=== PATIENT | female | born 2000 | race Caucasian/White ===

== ENCOUNTER 2019-07-28 14:33 | Emergency (ER) | payer SELFPAY ==
--- NOTE | 2019-07-28 15:08 | ER ---
Nurse's Notes [facility] Name: Lore Hodges Age: 19 yrs Sex: Female : 2000 Arrival Date: 07/28/2019 Time: 14:35 Bed 12 Private MD: Diagnosis: Impetigo, unspecified Presentation: 07/28 14:38 Presenting complaint: Patient states: "I've been having a problem right here (patient aj1 gestures to face) today I woke up with swelling to my eye and now I'm getting worried" Patient reports that she has been getting these pustules on her face since the beginning of the month, it started on the chin and then spread to the rest of her face. Transition of care: patient was not received from another setting of care. Onset of symptoms was July 2019. Risk Assessment: Do you want to hurt yourself or someone else? Patient reports no desire to harm self or others. Initial Sepsis Screen: Does the patient meet any 2 criteria? No. Patient's initial sepsis screen is negative. Does the patient have a suspected source of infection? No. Patient's initial sepsis screen is negative. Care prior to arrival: None. 14:38 Method Of Arrival: Ambulatory aj1 14:38 Acuity: AGUSTIN 4 aj1 Triage Assessment: 14:40 General: Appears in no apparent distress. comfortable, Behavior is calm, cooperative, aj1 appropriate for age. Pain: Complains of pain in back and right knee Pain currently is 5 out of 10 on a pain scale. Neuro: Level of Consciousness is awake, alert, obeys commands. Cardiovascular: Patient's skin is warm and dry. Respiratory: Airway is patent Respiratory effort is even, unlabored, Respiratory pattern is regular, symmetrical. 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 - Social history:: Smoking status: Patient/guardian denies using tobacco. - Ebola Screening: : Patient denies travel to an Ebola-affected area in the 21 days before illness onset. Screenin:00 Abuse screen: Denies threats or abuse. Nutritional screening: No deficits noted. aa5 Tuberculosis screening: No symptoms or risk factors identified. Fall Risk None identified. Assessment: 15:00 General: Appears comfortable, Behavior is calm, cooperative. Pain: Denies pain. Neuro: aa5 Level of Consciousness is awake, alert, obeys commands, Oriented to person, place, time, situation. Cardiovascular: Heart tones S1 S2 present Rhythm is regular. Respiratory: Airway is patent Respiratory effort is even, unlabored, Respiratory pattern is regular, symmetrical. GI: No signs and/or symptoms were reported involving the gastrointestinal system. : No signs and/or symptoms were reported regarding the genitourinary system. EENT: No signs and/or symptoms were reported regarding the EENT system. Derm: Skin is pink, warm \\T\\ dry. Rash noted that is on red, round, and dry skin to face. Musculoskeletal: Range of motion: intact in all extremities. Vital Signs: 14:40 BP 127 / 81; Pulse 96; Resp 18; Temp 97.9; Pulse Ox 100% on R/A; Weight 63.5 kg (R); aj1 Height 5 ft. 7 in. (170.18 cm) (R); Pain 5/10; 14:40 Body Mass Index 21.93 (63.50 kg, 170.18 cm) aj1 ED Course: 14:35 Patient arrived in ED. as 14:39 Triage completed. aj1 14:40 Arm band placed on Patient placed in waiting room, Patient notified of wait time. aj1 14:51 Julissa Rhodes, KLAUS is Primary Nurse. aa5 14:57 Wilton Willett NP is PHCP. pm1 14:57 Bryson Salvador MD is Attending Physician. pm1 15:00 Patient has correct armband on for positive identification. aa5 15:30 No provider procedures requiring assistance completed. Patient did not have IV access aa5 during this emergency room visit. Administered Medications: No medications were administered Outcome: 15:07 Discharge ordered by . pm1 15:30 Discharged to home ambulatory, with significant other. aa5 15:30 Condition: stable 15:30 Discharge instructions given to patient, Instructed on discharge instructions, follow up and referral plans. medication usage, Demonstrated understanding of instructions, follow-up care, medications, Prescriptions given X 2. 15:31 Patient left the ED. aa5 Signatures: Ermelinda Sifuentes RN RN aj1 Jazmine Butler as Julissa Rhodes, KLAUS RN aa5 Wilton Willett, SUPERVISOR [employer] ELEMENTS SUPERVISOR [employer] ELEMENTS pm1
--- NOTE | 2019-07-28 15:08 | EDPHYS ---
Physician Documentation [facility] Name: Lore Hodges Age: 19 yrs Sex: Female : 2000 Arrival Date: 07/28/2019 Time: 14:35 Bed 12 Private MD: ED Physician Bryson Salvador HPI: 07/28 15:06 This 19 yrs old Female presents to ER via Ambulatory with complaints of Rash. pm1 15:06 The patient's rash thought to be caused by an unknown cause. The rash is located on the pm1 face and groin. The rash can be described as crusted. Onset: The symptoms/episode began/occurred 1 week(s) ago. Associated signs and symptoms: Pertinent negatives: fever, swelling of lips, swelling of throat, swelling of tongue. Severity of symptoms: in the emergency department the symptoms are worse. Treatment given at home: None. The patient has not experienced similar symptoms in the past. The patient has not recently seen a physician. 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 - Social history:: Smoking status: Patient/guardian denies using tobacco. - Ebola Screening: : Patient denies travel to an Ebola-affected area in the 21 days before illness onset. ROS: 15:06 Constitutional: Negative for fever, chills, and weight loss, Eyes: Negative for injury, pm1 pain, redness, and discharge, Cardiovascular: Negative for chest pain, palpitations, and edema, Respiratory: Negative for shortness of breath, cough, wheezing, and pleuritic chest pain, Abdomen/GI: Negative for abdominal pain, nausea, vomiting, diarrhea, and constipation, Back: Negative for injury and pain, MS/Extremity: Negative for injury and deformity. 15:06 Neuro: Negative for headache, weakness, numbness, tingling, and seizure. 15:06 Skin: Positive for rash, of the face and groin, Negative for abscesses. Exam: 15:06 Constitutional: This is a well developed, well nourished patient who is awake, alert, pm1 and in no acute distress. Head/Face: Normocephalic, atraumatic. Neck: Trachea midline, no thyromegaly or masses palpated, and no cervical lymphadenopathy. Supple, full range of motion without nuchal rigidity, or vertebral point tenderness. No Meningismus. Chest/axilla: Normal chest wall appearance and motion. Nontender with no deformity. No lesions are appreciated. Cardiovascular: Regular rate and rhythm with a normal S1 and S2. No gallops, murmurs, or rubs. Normal PMI, no JVD. No pulse deficits. Respiratory: Lungs have equal breath sounds bilaterally, clear to auscultation and percussion. No rales, rhonchi or wheezes noted. No increased work of breathing, no retractions or nasal flaring. Abdomen/GI: Soft, non-tender, with normal bowel sounds. No distension or tympany. No guarding or rebound. No evidence of tenderness throughout. Back: No spinal tenderness. No costovertebral tenderness. Full range of motion. 15:06 Skin: Appearance: normal except for affected area, consistent with impetigo, business broker: Diya LI. 15:06 Neuro: Orientation: is normal, Motor: is normal, moves all fours. Vital Signs: 14:40 BP 127 / 81; Pulse 96; Resp 18; Temp 97.9; Pulse Ox 100% on R/A; Weight 63.5 kg (R); aj1 Height 5 ft. 7 in. (170.18 cm) (R); Pain 5/10; 14:40 Body Mass Index 21.93 (63.50 kg, 170.18 cm) aj MDM: 14:58 Patient medically screened. pm1 15:06 Data reviewed: vital signs. Data interpreted: Pulse oximetry: on room air is 100 %. pm1 Interpretation: normal. Counseling: I had a detailed discussion with the patient and/or guardian regarding: the historical points, exam findings, and any diagnostic results supporting the discharge/admit diagnosis, the need for outpatient follow up, to return to the emergency department if symptoms worsen or persist or if there are any questions or concerns that arise at home. Administered Medications: No medications were administered Disposition: 07/28/19 15:07 Discharged to Home. Impression: Impetigo, unspecified. - Condition is Stable. - Discharge Instructions: Impetigo, Adult. - Prescriptions for Bactroban 2 % Topical Ointment - Apply to affected area 1 application by TOPICAL route every 12 hours; 30 gram. Bactrim DS 800- 160 mg Oral Tablet - take 1 tablet by ORAL route every 12 hours for 10 days; 20 tablet. - Medication Reconciliation Form, Thank You Letter, Antibiotic Education, Prescription Opioid Use form. - Follow up: Emergency Department; When: As needed; Reason: Worsening of condition. Follow up: Private Physician; When: 2 - 3 days; Reason: Recheck today's complaints, Continuance of care, Re-evaluation by your physician. - Problem is new. - Symptoms have improved. Addendum: 07/31/2019 06:44 Co-signature as Attending Physician, Bryson Salvador MD I agree with the assessment and c mccann plan of care. Signatures: Ermelinda Sifuentes, RN RN aj1 Bryson Salvador MD MD cha Calderon, Audri, RN RN aa5 Wilton Willett NP AIRBRUSH ARTIST pm1 Corrections: (The following items were deleted from the chart) 07/28 15:31 15:07 07/28/2019 15:07 Discharged to Home. Impression: Impetigo, unspecified. Condition aa5 is Stable. Forms are Medication Reconciliation Form, Thank You Letter, Antibiotic Education, Prescription Opioid Use. Follow up: Emergency Department; When: As needed; Reason: Worsening of condition. Follow up: Private Physician; When: 2 - 3 days; Reason: Recheck today's complaints, Continuance of care, Re-evaluation by your physician. Problem is new. Symptoms have improved. pm1
[2019-07-28 16:55] VITALS: BP 127/81; TEMP 97.9; O2SAT 100
== END 2019-07-28 15:31 | disposition home or self-care (01) ==
LOC: ER 14:33
DX: L01.00 Impetigo, unspecified (principal); Z88.0 Allergy status to penicillin
CPT/HCPCS: 99282

== ENCOUNTER 2019-08-21 17:12 | Emergency (ER) | payer SELFPAY ==
--- NOTE | 2019-08-21 18:09 | ER ---
Nurse's Notes [facility] Name: Lore Hodges Age: 19 yrs Sex: Female : 2000 Arrival Date: 08/21/2019 Time: 17:14 Bed 13 Private MD: Diagnosis: Impetigo, unspecified Presentation: 08/21 17:22 Presenting complaint: Patient states: facial rash that started 2 days ago that is worse sv than it was when she was seen here on 07/28/19. Was told it was impetigo and given prescriptions and it got better but started back again. Transition of care: patient was not received from another setting of care. Onset of symptoms was August 19, 2019. Risk Assessment: Do you want to hurt yourself or someone else? Patient reports no desire to harm self or others. Initial Sepsis Screen: Does the patient meet any 2 criteria? No. Patient's initial sepsis screen is negative. Does the patient have a suspected source of infection? No. Patient's initial sepsis screen is negative. Care prior to arrival: None. 17:22 Method Of Arrival: Ambulatory sv 17:22 Acuity: AGUSTIN 5 sv RN DISEASE MANAGEMENT: 17:20 LMP 08/10/2019 rb1 Historical: - Allergies: 17:23 PENICILLINS; sv - PMHx: 17:23 None; sv - PSHx: 17:23 None; sv - Immunization history:: Adult Immunizations up to date, Flu vaccine is not up to date. - Social history:: Smoking status: Patient/guardian denies using tobacco. - Ebola Screening: : No symptoms or risks identified at this time. Screenin:20 Abuse screen: Denies threats or abuse. Nutritional screening: No deficits noted. rb1 Tuberculosis screening: No symptoms or risk factors identified. Fall Risk None identified. Assessment: 17:20 General: Appears in no apparent distress. comfortable, Behavior is calm, cooperative, rb1 Denies fever. Pain: Denies pain. Neuro: Level of Consciousness is awake, alert, obeys commands, Oriented to person, place, time, situation. Cardiovascular: Capillary refill < 3 seconds is brisk in bilateral fingers. Respiratory: Airway is patent Respiratory effort is even, unlabored, Respiratory pattern is regular, symmetrical. GI: No signs and/or symptoms were reported involving the gastrointestinal system. : No signs and/or symptoms were reported regarding the genitourinary system. Derm: Rash noted that is itchy, on left side of face, back, thumbs, and pubic area. 18:20 Reassessment: Patient appears in no apparent distress at this time. No changes from rb1 previously documented assessment. Vital Signs: 17:23 BP 116 / 65; Pulse 72; Resp 16; Temp 98; Pulse Ox 100% ; Weight 65.77 kg; Height 5 ft. sv 7 in. (170.18 cm); Pain 0/10; 18:11 BP 116 / 84; Pulse 73; Resp 16; Temp 97.6; Pulse Ox 100% on R/A; mh5 17:23 Body Mass Index 22.71 (65.77 kg, 170.18 cm) sv ED Course: 17:14 Patient arrived in ED. mr 17:20 Patient has correct armband on for positive identification. Bed in low position. Call rb1 light in reach. Side rails up X 1. Pulse ox on. NIBP on. 17:23 Triage completed. sv 17:23 Arm band placed on. sv 17:30 Ary Washburn, RN is Primary Nurse. rb1 17:45 Laurel Llanes FNP-C [facility]. snw 17:45 Fab Gibson MD is Attending Physician. snw 18:35 No provider procedures requiring assistance completed. Patient did not have IV access rb1 during this emergency room visit. Administered Medications: 18:20 Drug: Clindamycin 300 mg Route: PO; rb1 18:35 Follow up: Response: Medication administered at discharge. rb1 18:20 Drug: Hibiclens 4 % 1 application Route: Topical; Site: affected area; rb1 Outcome: 18:08 Discharge ordered by . snw 18:35 Patient left the ED. rb1 18:35 Discharged to home ambulatory. rb1 18:35 Condition: stable 18:35 Discharge instructions given to patient, Instructed on discharge instructions, follow up and referral plans. medication usage, Demonstrated understanding of instructions, follow-up care, medications, Prescriptions given X 1. Signatures: Sabine Rankin RN RN Laurel Llanes FNP-C BEEF CATTLE FARM WORKER-[facility] Sandra Madrigal mr Ary Washburn RN RN [place] Gretta Butler [facility] Corrections: (The following items were deleted from the chart) 17:24 17:22 Presenting complaint: Patient states: facial rash that started 2 days ago that is sv worse than it was when she was seen here on 07/28/19. Was given prescriptions and it got better but started back again. sv
--- NOTE | 2019-08-21 18:10 | EDPHYS ---
Physician Documentation [facility] Name: Lore Hodges Age: 19 yrs Sex: Female : 2000 Arrival Date: 08/21/2019 Time: 17:14 Bed 13 Private MD: ED Physician Fab Gibson HPI: 08/21 19:07 This 19 yrs old Female presents to ER via Ambulatory with complaints of Skin snw Sore(s). 19:07 Onset: The symptoms/episode began/occurred suddenly. Associated signs and symptoms: snw Pertinent positives: itching. 19:10 The patient has experienced a previous episode. The patient has been recently seen by a snw physician: with similar presenting complaints, and apparently given a diagnosis of impetigo. 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 - Social history:: Smoking status: Patient/guardian denies using tobacco. - Ebola Screening: : No symptoms or risks identified at this time. ROS: 19:04 Constitutional: Negative for fever, chills, and weight loss, Eyes: Negative for injury, snw pain, redness, and discharge, ENT: Negative for injury, pain, and discharge, Neck: Negative for injury, pain, and swelling, Cardiovascular: Negative for chest pain, palpitations, and edema, Respiratory: Negative for shortness of breath, cough, wheezing, and pleuritic chest pain, Abdomen/GI: Negative for abdominal pain, nausea, vomiting, diarrhea, and constipation, Back: Negative for injury and pain, : Negative for injury, bleeding, discharge, and swelling, MS/Extremity: Negative for injury and deformity, Neuro: Negative for headache, weakness, numbness, tingling, and seizure, Psych: Negative for depression, anxiety, suicide ideation, homicidal ideation, and hallucinations. 19:04 Skin: Positive for dx with impetigo, rx Bactroban and Bactrim. Face was clearing and rx for bactrim completed. Face began breaking out again. Exam: 18:57 Constitutional: This is a well developed, well nourished patient who is awake, alert, snw and in no acute distress. Head/Face: Normocephalic, atraumatic. left face with crusting pustules at tragus, other areas of scabbed breaks in the skin over primarily left face Eyes: Pupils equal round and reactive to light, extra-ocular motions intact. Lids and lashes normal. Conjunctiva and sclera are non-icteric and not injected. Cornea within normal limits. Periorbital areas with no swelling, redness, or edema. ENT: Nares patent. No nasal discharge, no septal abnormalities noted. Tympanic membranes are normal and external auditory canals are clear. Oropharynx with no redness, swelling, or masses, exudates, or evidence of obstruction, uvula midline. Mucous membranes moist. Neck: Trachea midline, no thyromegaly or masses palpated, and no cervical lymphadenopathy. Supple, full range of motion without nuchal rigidity, or vertebral point tenderness. No Meningismus. Chest/axilla: Normal chest wall appearance and motion. Nontender with no deformity. No lesions are appreciated. Cardiovascular: Regular rate and rhythm with a normal S1 and S2. No gallops, murmurs, or rubs. Normal PMI, no JVD. No pulse deficits. Respiratory: Lungs have equal breath sounds bilaterally, clear to auscultation and percussion. No rales, rhonchi or wheezes noted. No increased work of breathing, no retractions or nasal flaring. Abdomen/GI: Soft, non-tender, with normal bowel sounds. No distension or tympany. No guarding or rebound. No evidence of tenderness throughout. Back: No spinal tenderness. No costovertebral tenderness. Full range of motion. Skin: Warm, dry with normal turgor. Normal color with no rashes, no lesions, and no evidence of cellulitis. MS/ Extremity: Pulses equal, no cyanosis. Neurovascular intact. Full, normal range of motion. Neuro: Awake and alert, GCS 15, oriented to person, place, time, and situation. Cranial nerves II-XII grossly intact. Motor strength 5/5 in all extremities. Sensory grossly intact. Cerebellar exam normal. Normal gait. Vital Signs: 17:23 BP 116 / 65; Pulse 72; Resp 16; Temp 98; Pulse Ox 100% ; Weight 65.77 kg; Height 5 ft. sv 7 in. (170.18 cm); Pain 0/10; 18:11 BP 116 / 84; Pulse 73; Resp 16; Temp 97.6; Pulse Ox 100% on R/A; mh5 17:23 Body Mass Index 22.71 (65.77 kg, 170.18 cm) sv MDM: 17:45 Patient medically screened. snw 18:56 Data reviewed: vital signs, nurses notes. Data interpreted: Pulse oximetry: on room air snw is 100 %. Interpretation: normal. Counseling: I had a detailed discussion with the patient and/or guardian regarding: the historical points, exam findings, and any diagnostic results supporting the discharge/admit diagnosis, the need for outpatient follow up, to return to the emergency department if symptoms worsen or persist or if there are any questions or concerns that arise at home. Special discussion: I have referred the patient to see his PCP for further evaluation of high blood pressure. Based on the history and exam findings, there is no indication for further emergent testing or inpatient evaluation. I discussed with the patient/guardian the need to see the mill crane operator for further evaluation of the symptoms. I discussed with the patient/guardian the need to see the primary care provider for further evaluation of the symptoms. Administered Medications: 18:20 Drug: Clindamycin 300 mg Route: PO; rb1 18:35 Follow up: Response: Medication administered at discharge. rb1 18:20 Drug: Hibiclens 4 % 1 application Route: Topical; Site: affected area; rb1 Disposition: 21:35 Co-signature as Attending Physician, Fab Gibson MD Signed chart for administrative ps1 purposes. Disposition: 08/21/19 18:08 Discharged to Home. Impression: Impetigo, unspecified. - Condition is Stable. - Discharge Instructions: Hand Washing, Impetigo, Adult. - Prescriptions for Clindamycin HCl 300 mg Oral Capsule - take 1 capsule by ORAL route every 6 hours for 10 days; 40 capsule. - Medication Reconciliation Form, Thank You Letter, Antibiotic Education, Prescription Opioid Use form. - Follow up: Private Physician; When: 2 - 3 days; Reason: Recheck today's complaints, Continuance of care, Re-evaluation by your physician. Follow up: Emergency Department; When: As needed; Reason: Worsening of condition. Signatures: Sabine Rankin RN RN Laurel Lundy, STEAM TABLE WORKER-C STEAM TABLE WORKER-[facility] Ary Washburn, RN RN rb1 Fab Gibson MD MD ps1 Corrections: (The following items were deleted from the chart) 18:35 18:08 08/21/2019 18:08 Discharged to Home. Impression: Impetigo, unspecified. Condition rb1 is Stable. Forms are Medication Reconciliation Form, Thank You Letter, Antibiotic Education, Prescription Opioid Use. Follow up: Private Physician; When: 2 - 3 days; Reason: Recheck today's complaints, Continuance of care, Re-evaluation by your physician. Follow up: Emergency Department; When: As needed; Reason: Worsening of condition. snw
[2019-08-21] MEDS ORDERED: CLINDAMYCIN HCL 150 MG CAP ONE (18:28)
[2019-08-21 20:29] VITALS: O2SAT 100
[2019-08-21 20:30] VITALS: BP 116/84; TEMP 97.6
== END 2019-08-21 18:35 | disposition home or self-care (01) ==
LOC: ER 17:12
DX: L01.00 Impetigo, unspecified (principal); Z88.0 Allergy status to penicillin
CPT/HCPCS: 99283